=== PATIENT | female | born 1975 ===

== ENCOUNTER 2018-11-06 16:57 | Outpatient (REF) | payer BC, SELFPAY ==
[2018-11-06 20:03] LABS: Anion Gap 7.8 mmol/L (3-11); BUN 16 mg/dL (7-18); CO2 27.2 mmol/L (21.0-32.0); CREATININE 0.98 mg/dL (0.55-1.02); Calcium 8.6 mg/dL (8.5-10.1); Chloride 106 mmol/L (98-107); Glucose 85 mg/dL (70-100); Potassium 4.1 mmol/L (3.5-5.1); Sodium 141 mmol/L (136-145); TSH (W/Ref FT4) 1.04 uIU/mL (0.36-3.74)
[2018-11-08 10:35] LABS: Thyroglobulin Antibody <15 U/mL (<61); Thyroperoxidase Antibody <28 U/mL (<61)
== END 2018-11-06 17:17 ==
LOC: NCHCO 16:57
PROVIDERS: PCP Physician Assistant; Visit Provider Nurse Practitioner Family
DX: R53.83 Other fatigue (principal); I10 Essential (primary) hypertension
CPT/HCPCS: 80048; 86376; 84443